=== PATIENT | male | born 1950 | race Caucasian/White ===

== ENCOUNTER 2017-03-11 12:12 | Emergency (ER) | payer MEDICARE, OTHER ==
--- NOTE | 2017-03-11 11:58 | CT ---
EXAMINATION TYPE: CT brain wo con DATE OF EXAM: 03/11/2017 COMPARISON: 08/07/2014 INDICATION: Fall, bruising, swelling to Rt eye DLP: 1574.6 (brain and facial) mGycm, Automated exposure control for dose reduction was used. CONTRAST: None CT of the brain is performed utilizing 3 mm thick sections through the posterior fossa and 3 mm thick sections through the remaining calvarium. Study is performed within 24 hours of arrival to the hosp ital. There is a subdural hematoma along the right parietal region with extension into the right middle scrap shear operator nial fossa with a maximum depth of 1.1 cm. This extends from near the frontal region to near the occi pital junction with the parietal lobe. Mild mass effect is adjacent on the brain dated sulci on the r ight are effaced. No midline shift is evident. Report was called to the referring PA Mine Dominguez by Brando Khan by telephone 1147 hours 03/11/2017. No mass lesion is evident. No acute infarcts are evident. Ventricles appear appropriate for the patient age. Quadrigeminal plate and ambient cistern are patent . Sulci on the left appear normal. Right sulci are less well visualized compared to the left which is a change from the comparison study of 2013. Retention cyst is within the sphenoid sinus. There is prominent soft tissue swelling over the right o rbital region. Septal deviation and spurring to the left is noted. IMPRESSIONS: 1. Right subdural hematoma with a maximum depth of 1.1 cm. There appears to be some mild effacement of right sulci without midline shift.
--- NOTE | 2017-03-11 12:00 | CT ---
EXAMINATION TYPE: CT facial bones wo con DATE OF EXAM: 03/11/2017 COMPARISON: NONE HISTORY: Fall, bruising and swelling to Rt eye CT DLP: 1574.6 (brain, facial) mGycm Automated exposure control for dose reduction was used. TECHNIQUE: CT scan of the sinuses is performed without contrast, axial images are obtained, coronal r eformatted images are also reviewed. FINDINGS: There is a 2.5 cm hematoma in the subcutaneous tissues adjacent to the superior lateral rig ht orbit near the tip of the greater wing of the sphenoid. No underlying fractures are evident. The globes are symmetrical. Soft tissue swelling is over the right orbit and right cheek. Retention c yst is within the sphenoid sinus. Remaining paranasal sinuses are clear. There is left septal deviati on and a left septal spur. The ostiomeatal units are patent. The patient's subdural hematoma is poorly visualized on this examination but is evident. Please see C T brain report same date. Results were notified to the referring PA at the time of the CT brain inter pretation. IMPRESSION: 1. Right subdural hematoma. Results were notified. 2. Subcutaneous hematoma measuring 2.5 cm adjacent to the greater wing of the sphenoid. 3. Soft tissue swelling right periorbital right cheek region.
[2017-03-11 12:14] VITALS: RESP 20
--- NOTE | 2017-03-11 12:49 | ED ---
General Adult HPI - General Chief complaint: Head Injury Stated complaint: Head Injury Time Seen by Provider: 03/11/17 12:24 Source: patient, family, RN notes reviewed Mode of arrival: wheelchair Limitations: no limitations - History of Present Illness Initial comments: Patient is a pleasant 66-year-old male presenting to the emergency department following head injury. Patient admits to drinking alcohol and did have a fall on Saturday night around midnight. Patient does recall the fall and denies loss of consciousness. Patient has a mild headache that is moderate to severe with upright position. No weakness. No confusion. No vomiting. Patient does have some nausea. Patient is ambulatory without difficulty. No history of previous head injury. Patient was seen at the clinic and had outpatient head CT done. - Related Data Home Medications Medication Instructions Recorded Confirmed ALPRAZolam [Xanax] 0.5 mg PO BID PRN 05/07/16 05/07/16 Atorvastatin [Lipitor] 40 mg PO DAILY 05/07/16 05/07/16 Metoprolol Succinate (ER) [Toprol 100 mg PO BID 05/07/16 05/07/16 XL] Omeprazole [PriLOSEC] 40 mg PO DAILY 05/07/16 05/07/16 Sertraline [Zoloft] 200 mg PO DAILY 05/07/16 05/07/16 Zolpidem Tartrate [Ambien Cr] 12.5 mg PO HS 05/07/16 05/07/16 amLODIPine BESYLATE/BENAZEPRIL 1 cap PO DAILY 05/07/16 05/08/16 [amLODIPine BESYLATE/BENAZEPRIL 10-20 mg] Previous Rx's Medication Instructions Recorded Levofloxacin [Levaquin] 500 mg PO DAILY #10 tab 05/09/16 Allergies Allergy/AdvReac Type Severity Reaction Status Date / Time No Known Allergies Allergy Verified 03/11/17 12:14 Review of Systems ROS Statement: Those systems with pertinent positive or pertinent negative responses have been documented in the HPI. ROS Other: All systems not noted in ROS Statement are negative. Constitutional: Denies: fever Eyes: Denies: vision change ENT: Denies: ear pain Respiratory: Denies: cough Cardiovascular: Denies: chest pain Endocrine: Denies: fatigue Gastrointestinal: Reports: nausea. Denies: abdominal pain, vomiting Genitourinary: Denies: urgency Musculoskeletal: Denies: back pain Skin: Denies: rash Neurological: Reports: headache. Denies: weakness, numbness, paresthesias, confusion, abnormal gait Past Medical History Past Medical History: GERD/Reflux, Hyperlipidemia, Hypertension, Osteoarthritis (OA), Pneumonia Additional Past Medical History / Comment(s): HIATAL HERNIA, TORN LT ROTATOR CUFF, HEAD INJURY/CONCUSSION 08-07-14 History of Any Multi-Drug Resistant Organisms: None Reported Past Surgical History: Orthopedic Surgery Additional Past Surgical History / Comment(s): RT FOOT SX. VASECTOMY Past Anesthesia/Blood Transfusion Reactions: No Reported Reaction Past Psychological History: Anxiety, Depression Additional Psychological History / Comment(s): PT ADMITS TO SOME DEPRESSION BUT DENIES ANY THOUGHT OF HARMING SELF,NO HOPELESSNESS. PT STATED WORKED NO LESS THAN 70 HOURS A WEEK, [employer] NEVER HAD A LOT OF TIME TO DEVELOP ANY HOBBIES ETC. HE LOST HIS 4 YEARS AGO AND RETIRED 6 MONTHS AGO. 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21 Past Drug Use History: None Reported - Past Family History Mother Family Medical History: Dialysis, Hypertension, Renal Disease Father Family Medical History: Cancer Additional Family Medical History / Comment(s): LUNG CANCER General Exam Limitations: no limitations General appearance: alert, in no apparent distress Head exam: Present: other (Right periorbital soft tissue swelling) Eye exam: Present: PERRL, EOMI, other (Right-sided some conjunctival hemorrhage) ENT exam: Present: normal oropharynx Neck exam: Present: tenderness (Mild tenderness to the C2-C3 region.) Respiratory exam: Present: normal lung sounds bilaterally Cardiovascular Exam: Present: regular rate, normal rhythm GI/Abdominal exam: Present: soft. Absent: tenderness Extremities exam: Present: normal inspection, full ROM. Absent: tenderness Neurological exam: Present: alert, oriented X3, CN II-XII intact. Absent: motor sensory deficit Expanded Patient oriented to: Present: person, place, time Speech: Present: fluid speech Cranial nerves: EOM's Intact: Normal, Facial Sensation: Normal Cerebellar function: Finger to Nose: Normal Sensory exam: Upper Extremity Light Touch: Normal, Lower Extremity Light Touch: Normal Motor strength exam: RUE: 5, LUE: 5, RLE: 5, LLE: 5 Eye Response: (4) open spontaneously Motor Response: (6) obeys commands Verbal Response: (5) oriented Psychiatric exam: Present: normal affect, normal mood Skin exam: Present: normal color Course Vital Signs 03/11/17 12:12 Temperature 98.9 F Pulse Rate 80 Respiratory 20 Rate Blood Pressure 146/84 O2 Sat by Pulse 96 Oximetry Medical Decision Making - Medical Decision Making Patient was updated on results and plan. Case was discussed with Dr. Mora at [facility], who will accept transfer. Disposition Clinical Impression: Subdural hematoma Disposition: OTHER INSTITUTION NOT DEFINED Referrals: Bacilio Dotson MD [Primary Care Provider] - 1-2 days Time of Disposition: 12:51 - Out of Hospital Transfer - Req. Specs Out of Hospital Transfer - Requested Specifics: Other Emergency Center
[2017-03-11] MEDS ORDERED: MORPHINE SULFATE 4 MG/ML SYRINGE IV STA (12:52)
[2017-03-11 13:04] LABS: Partial Thromboplastin Time 27.2 sec (22.0-30.0); Prothrombin Time 9.8 sec (9.0-12.0)
[2017-03-11 13:09] LABS: ALT 27 U/L (21-72); AST 42 U/L (17-59); Alkaline Phosphatase 95 U/L (38-126); Anion Gap 9 mmol/L; Blood Urea Nitrogen 18 mg/dL (9-20); Calcium 9.7 mg/dL (8.4-10.2); Carbon Dioxide 27 mmol/L (22-30); Chloride 101 mmol/L (98-107); Glucose 107 mg/dL (74-99); Non-African American GFR(MDRD) >60 (>60 ml/min/1.73 sqM); Potassium 4.5 mmol/L (3.5-5.1); Sodium 137 mmol/L (137-145); Total Bilirubin 1.2 mg/dL (0.2-1.3); Total Protein 7.1 g/dL (6.3-8.2)
--- NOTE | 2017-03-11 13:22 | CT ---
EXAMINATION TYPE: CT cervical spine wo con DATE OF EXAM: 03/11/2017 COMPARISON: NONE HISTORY: Patient denies neck pain at time of exam. Patient complains of headache post fall [address] DLP: 426.1 mGycm Automated exposure control for dose reduction was used. TECHNIQUE: CT scan of the cervical spine is obtained without contrast, axial images are obtained, sa gittal and coronal reformatted images are also reviewed. FINDINGS: The patient's right subdural hematoma is faintly visualized within the [id number] at the skull base. No acute fractures evident. Uncovertebral joint hypertrophy is present C4-C5 with moderate bilateral foraminal narrowing, C5-6 with moderate to more severe foraminal stenosis. C6-7 uncovertebral joint h ypertrophy has moderate to severe bilateral foraminal stenosis, greater on the left. There is disc space narrowing C4-5. There is loss of disc height C5-6 C6-7. Endplate spurring is present C4-5 and left paracentral region at C5-6 centrally at C6-7. These have m ild anterior thecal sac compression. IMPRESSION: 1. No acute osseous abnormality. 2. Degenerative changes causing moderate to severe foraminal narrowing discussed above
[2017-03-11 13:25] LABS: Anisocytosis Slight; Basophils % (A) 0 %; CH 31.7; CHCM 34.5; Eosinophils # (A) 0.1 k/uL (0-0.7); Eosinophils % (A) 1 %; HCT 37.3 % (39.0-53.0); HDW 3.17; HGB 12.5 gm/dL (13.0-17.5); Luc # (Auto) 0.24; Luc % (Auto) 4; Lymphocytes # (A) 0.6 k/uL (1.0-4.8); Lymphocytes % (A) 11 %; MCH 30.9 pg (25.0-35.0); MCHC 33.5 g/dL (31.0-37.0); Mean Platelet Volume 9.9; Monocytes # (A) 0.6 k/uL (0-1.0); Monocytes % (A) 10 %; Neutrophils # (A) 4.2 k/uL (1.3-7.7); Neutrophils % (A) 73 %; RBC 4.06 m/uL (4.30-5.90); RDW 17.4 % (11.5-15.5); WBC 5.8 k/uL (3.8-10.6); WBC (Perox) 5.93
[2017-03-11 13:42] VITALS: BP 138/78; PULSE 78; TEMP 98.9
== END 2017-03-11 13:42 | disposition short-term general hospital (02) ==
LOC: EC 12:12
DX: S06.5X0A Traumatic subdural hemorrhage without loss of consciousness, initial encounter (principal); H11.31 Conjunctival hemorrhage, right eye; E78.5 Hyperlipidemia, unspecified; I10 Essential (primary) hypertension; K21.9 Gastro-esophageal reflux disease without esophagitis; F32.9 Major depressive disorder, single episode, unspecified; F41.9 Anxiety disorder, unspecified; Z87.891 Personal history of nicotine dependence; Z79.899 Other long term (current) drug therapy; W01.190A Fall on same level from slipping, tripping and stumbling with subsequent striking against furniture, initial encounter; Y93.89 Activity, other specified
CPT/HCPCS: 36415; 80053; 85025; 85610; 85730; 72125; 70486; 70450; 99285; 96374; L0120; J2270

== ENCOUNTER 2021-07-30 09:52 | Emergency (ER) | payer MEDICARE, OTHER ==
[2021-07-30 09:57] VITALS: RESP 18
[2021-07-30] MEDS ORDERED: KETOROLAC 15 MG/ML 1 ML VIAL IM STA (10:07)
[2021-07-30] MEDS ORDERED: HYDROmorphone 0.5 MG/0.5 ML SYRINGE IM STA (10:08)
[2021-07-30] MEDS ORDERED: HYDROmorphone 1 MG/ML 1 ML SYRINGE IM STA (10:08)
--- NOTE | 2021-07-30 10:11 | ED ---
General Adult HPI - General Chief complaint: Extremity Injury, Upper Stated complaint: Fall/Rib Pain Time Seen by Provider: 07/30/21 09:59 Source: patient, RN notes reviewed, old records reviewed Mode of arrival: wheelchair Limitations: physical limitation - History of Present Illness Initial comments: 70-year-old male presents status post fall. Patient states yesterday evening he tripped on a slippery floor transition and fell onto his right chest wall. His had significant pain and feels a popping sensation. This is worse with any movement or deep breathing. He denies head or neck trauma. No anticoagulation. No other injury reported. - Related Data Home Medications Medication Instructions Recorded Confirmed ALPRAZolam [Xanax] 0.5 mg PO BID PRN 05/07/16 03/11/17 Atorvastatin [Lipitor] 40 mg PO HS 05/07/16 03/11/17 Metoprolol Succinate (ER) [Toprol 100 mg PO BID 05/07/16 03/11/17 XL] Omeprazole [PriLOSEC] 40 mg PO DAILY 05/07/16 03/11/17 Sertraline [Zoloft] 200 mg PO DAILY 05/07/16 03/11/17 amLODIPine BESYLATE/BENAZEPRIL 1 cap PO DAILY 05/07/16 03/11/17 [amLODIPine BESYLATE/BENAZEPRIL 10-20 MG] Aspirin 325 mg PO DAILY 03/11/17 03/11/17 Multivit-Min/FA/Lycopen/Lutein 1 tab PO DAILY 03/11/17 03/11/17 [Centrum Silver Men Tablet] Zolpidem [Ambien] 10 mg PO HS 03/11/17 03/11/17 Previous Rx's Medication Instructions Recorded HYDROcodone/APAP 5-325MG [[place] 1 tab PO Q6HR PRN #12 tab 07/30/21 5-325] Ibuprofen [Motrin] 600 mg PO Q8HR PRN #24 tab 07/30/21 Allergies Allergy/AdvReac Type Severity Reaction Status Date / Time morphine Allergy Rash/Hives Verified 07/30/21 09:57 Review of Systems ROS Statement: Those systems with pertinent positive or pertinent negative responses have been documented in the HPI. ROS Other: All systems not noted in ROS Statement are negative. Past Medical History Past Medical History: GERD/Reflux, Hyperlipidemia, Hypertension, Osteoarthritis (OA), Pneumonia Additional Past Medical History / Comment(s): HIATAL HERNIA, TORN LT ROTATOR CUFF, HEAD INJURY/CONCUSSION 08-07-14 History of Any Multi-Drug Resistant Organisms: None Reported Past Surgical History: Orthopedic Surgery Additional Past Surgical History / Comment(s): RT FOOT SX. VASECTOMY Past Anesthesia/Blood Transfusion Reactions: No Reported Reaction Past Psychological History: Anxiety, Depression Smoking Status: Never smoker Past Alcohol Use History: Occasional Past Drug Use History: None Reported - Past Family History Mother Family Medical History: Dialysis, Hypertension, Renal Disease Father Family Medical History: Cancer Additional Family Medical History / Comment(s): LUNG CANCER General Exam Limitations: physical limitation General appearance: alert, in no apparent distress Head exam: Present: atraumatic, normocephalic Eye exam: Present: normal appearance, PERRL ENT exam: Present: normal exam Neck exam: Present: normal inspection. Absent: tenderness, meningismus Respiratory exam: Present: normal lung sounds bilaterally, chest wall tenderness (Severe right lateral chest wall tenderness, no crepitus, no external signs of trauma). Absent: respiratory distress Cardiovascular Exam: Present: regular rate, normal rhythm GI/Abdominal exam: Present: soft. Absent: distended, tenderness Extremities exam: Present: normal inspection, normal capillary refill. Absent: pedal edema Neurological exam: Present: alert, oriented X3, CN II-XII intact. Absent: motor sensory deficit Skin exam: Present: warm, dry, intact. Absent: cyanosis, diaphoretic Course Vital Signs 07/30/21 09:53 Temperature 98.0 F Pulse Rate 71 Respiratory 18 Rate Blood Pressure 144/80 O2 Sat by Pulse 97 Oximetry Medical Decision Making - Medical Decision Making 70-year-old male status post fall with right lateral chest pain. X-ray performed, negative for pneumothorax, shows a fractured 6 and seventh rib minimally displaced. Patient's pain is controlled in emergency partner. Given incentive spirometer. He will follow with the primary care physician. Disposition Clinical Impression: Rib fractures Disposition: HOME SELF-CARE Condition: Good Instructions (If sedation given, give patient instructions): Rib Fracture (ED) Additional Instructions: Please use incentive spirometer once hourly throughout the day. Please return with worsening pain. Prescriptions: Ibuprofen [Motrin] 600 mg PO Q8HR PRN #24 tab PRN Reason: Pain HYDROcodone/APAP 5-325MG [[place] 5-325] 1 tab PO Q6HR PRN #12 tab PRN Reason: Pain Is patient prescribed a controlled substance at d/c from ED?: No Referrals: Bacilio Dotson MD [Primary Care Provider] - 1-2 days Time of Disposition: 11:17
--- NOTE | 2021-07-30 11:51 | XR ---
Right RIBS with chest x-ray HISTORY: Trauma and pain Frontal view of the chest, 4 views of the right ribs submitted and correlated to prior chest x-ray 05/07/2016 Chest x-ray is remarkable for some probable scarring at the lingula, postop change to the left should er. There is no evident pneumothorax or pleural effusion. Cardiac mediastinal silhouette is stable. T here is thoracic spondylosis, spinal curvature present. Mild cortical irregularity present lateral se venth and sixth ribs, seventh rib is minimally displaced. IMPRESSION: Right-sided rib fractures.
[2021-07-30 12:16] VITALS: BP 120/70; PULSE 70; TEMP 98.2
== END 2021-07-30 12:15 | disposition home or self-care (01) ==
LOC: EC 09:52
DX: S22.41XA Multiple fractures of ribs, right side, initial encounter for closed fracture (principal); I10 Essential (primary) hypertension; E78.5 Hyperlipidemia, unspecified; K21.9 Gastro-esophageal reflux disease without esophagitis; F32.9 Major depressive disorder, single episode, unspecified; F41.9 Anxiety disorder, unspecified; Z79.1 Long term (current) use of non-steroidal anti-inflammatories (NSAID); Z79.82 Long term (current) use of aspirin; Z79.899 Other long term (current) drug therapy; Z80.1 Family history of malignant neoplasm of trachea, bronchus and lung; Z82.49 Family history of ischemic heart disease and other diseases of the circulatory system; W01.0XXA Fall on same level from slipping, tripping and stumbling without subsequent striking against object, initial encounter
CPT/HCPCS: 71101; 99284; 96372 ×2; J1885; J1170

== ENCOUNTER 2023-02-11 13:59 | Observation (INO) | payer MEDICARE ==
[2023-02-11] MEDS ORDERED: oxyCODONE-APAP 10-325MG 1 EACH TAB PO STA (14:44)
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
[2023-02-11 15:17] LABS: Anisocytosis Moderate; HCT 32.5 % (39.0-53.0); HGB 10.7 gm/dL (13.0-17.5); Macrocytosis Marked; Mean Platelet Volume 7.9; Platelet Count 115 k/uL (150-450); Poikilocytosis Slight; RBC 3.16 m/uL (4.30-5.90); RDW 22.1 % (11.5-15.5); WBC 3.2 k/uL (3.8-10.6)
[2023-02-11 15:36] LABS: ALT 32 U/L (4-49); AST 43 U/L (17-59); African American GFR (CKD) >90 (>60 ml/min/1.73 sqM); Albumin 3.9 g/dL (3.5-5.0); Alkaline Phosphatase 66 U/L (38-126); Anion Gap 8 mmol/L; Blood Urea Nitrogen 12 mg/dL (9-20); Calcium 9.1 mg/dL (8.4-10.2); Carbon Dioxide 27 mmol/L (22-30); Chloride 92 mmol/L (98-107); Glucose 99 mg/dL (74-99); Magnesium 1.3 mg/dL (1.6-2.3); Non-African American GFR(CKD) >90 (>60 ml/min/1.73 sqM); Potassium 4.6 mmol/L (3.5-5.1); Sodium 127 mmol/L (137-145); Total Bilirubin 0.9 mg/dL (0.2-1.3); Total Protein 6.3 g/dL (6.3-8.2)
[2023-02-11] MEDS ORDERED: SODIUM CHLORIDE 0.9% 1,000 ML IV STA (15:44)
--- NOTE | 2023-02-11 15:51 | CT ---
EXAMINATION TYPE: CT lumbar spine wo con DATE OF EXAM: 02/11/2023 COMPARISON: None HISTORY: 72-year-old male Low back pain since fall 5 days ago TECHNIQUE: Contiguous axial scanning of the lumbar spine without IV contrast. Coronal and sagittal re constructions performed. CT DLP: 1675.6 mGycm Automated exposure control for dose reduction was used. FINDINGS: There is a T12 vertebral body fracture which affects both the superior and inferior endplates. This r esults in minimal anterior wedging with 50% anterior height loss. No retropulsion into the spinal can al. Moderate to advanced degenerative disc disease mid and lower lumbar spine. Bulging discs contribute t o variable mild spinal canal stenoses at multiple levels, more moderate at L4-L5 and L5-S1. Multilevel advanced hypertrophic facet arthropathy especially mid to lower lumbar spine. Alignment is maintained. On the left, changes result in severe neuroforaminal stenosis at L4-L5 and moderate at L5-S1. Mild L3 -L4. On the right, changes result in severe neuroforaminal stenosis at L5-S1 and moderate at L4-L5. Mild a t L3-L4. Underlying hiatal hernia partially visualized. IMPRESSION: 1. MULTIDIRECTIONAL ACUTE FRACTURE OF THE T12 VERTEBRAL BODY. THIS RESULTS IN OVERALL MINIMAL ANTERIO R WEDGING WITH 15% ANTERIOR HEIGHT LOSS. NO RETROPULSION INTO THE VENTRAL SPINAL CANAL. 2. MODERATE TO ADVANCED SPONDYLOTIC CHANGE WITHIN THE MID AND LOWER LUMBAR SPINE. 3. SEVERE LEFT NEUROFORAMINAL STENOSIS AT L4-L5 AND ON THE RIGHT AT L5-S1. ADDITIONAL LEVEL BY LEVEL CHANGES ABOVE.
[2023-02-11] MEDS ORDERED: NALOXONE 0.4 MG/ML 1 ML VIAL IV PRN (15:57)
[2023-02-11] MEDS ORDERED: ONDANSETRON 4 MG/2 ML VIAL IVP PRN (15:57)
--- NOTE | 2023-02-11 16:04 | XR ---
EXAMINATION TYPE: XR chest 2V DATE OF EXAM: 02/11/2023 COMPARISON: 07/30/2021 INDICATION: Wheezing TECHNIQUE: Frontal and lateral views of the chest are obtained. FINDINGS: The heart size is normal. The pulmonary vasculature is normal. The lungs are clear. There is hyperinflation, increased AP diameter, and flattening the diaphragms. C orrelate for COPD. No pneumothorax is evident. In the region of the sixth or seventh right lateral rib there is some deformity, correlate for fractu re. Left shoulder prosthesis is present. IMPRESSION: 1. Rib fracture in the region of the sixth or seventh right lateral rib may be present. 2. No acute pulmonary process. 3. COPD
[2023-02-11] MEDS: SODIUM CHLORIDE 0.9% 1,000 ML IV SCH (16:34)
[2023-02-11] MEDS: HYDROmorphone 0.5 MG/0.5 ML SYRINGE IVP PRN ×2 (16:38→20:40)
[2023-02-11] MEDS: MAGNESIUM SULFATE-D5W PMX 1 GM in DEXTROSE/WATER 1 100ML.BAG IVPB SCH ×2 (16:38→18:25)
[2023-02-11] MEDS ORDERED: ZOLPIDEM 5 MG TAB ONE (21:48)
[2023-02-11] MEDS ORDERED: ALPRAZolam 0.5 MG TAB ONE (21:48)
[2023-02-11] MEDS: lisinopriL 20 MG TAB PO SCH (21:49)
[2023-02-11] MEDS: amLODIPine 10 MG TAB PO SCH (21:49)
[2023-02-11] MEDS: PANTOPRAZOLE 40 MG TABLET PO SCH (21:49)
[2023-02-11] MEDS: ALPRAZolam 0.5 MG TAB PO SCH (21:51)
[2023-02-11] MEDS: METOPROLOL SUCCINATE (ER) 100 MG TAB.ER.24H PO SCH (21:51)
[2023-02-11] MEDS: ZOLPIDEM 5 MG TAB PO SCH (21:51)
[2023-02-11] MEDS: SERTRALINE 100 MG TAB PO SCH (21:51)
[2023-02-11] MEDS: HYDROcodone/APAP 5-325MG 1 EACH TAB PO PRN (21:51)
[2023-02-12] MEDS: HYDROcodone/APAP 5-325MG 1 EACH TAB PO PRN ×4 (04:13→20:55)
[2023-02-12] MEDS: HYDROmorphone 0.5 MG/0.5 ML SYRINGE IVP PRN ×2 (04:13→19:55)
[2023-02-12] MEDS: ALBUTEROL NEBULIZED 2.5 MG/3 ML INHALATION PRN ×3 (07:26→20:22)
[2023-02-12] MEDS ORDERED: Magnesium Replacement Protocol 1 EACH MISC MISCELLANE PRN (08:22)
[2023-02-12] MEDS: lisinopriL 20 MG TAB PO SCH (08:33)
[2023-02-12] MEDS: SERTRALINE 100 MG TAB PO SCH ×2 (08:33→22:21)
[2023-02-12] MEDS: ALPRAZolam 0.5 MG TAB PO SCH ×2 (08:33→22:20)
[2023-02-12] MEDS: METOPROLOL SUCCINATE (ER) 100 MG TAB.ER.24H PO SCH ×2 (08:33→22:21)
[2023-02-12] MEDS: PANTOPRAZOLE 40 MG TABLET PO SCH (08:33)
[2023-02-12] MEDS: amLODIPine 10 MG TAB PO SCH (08:33)
[2023-02-12] MEDS: SODIUM CHLORIDE 0.9% 1,000 ML IV SCH ×2 (08:37→17:54)
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
[2023-02-12] MEDS ORDERED: MAGNESIUM HYDROXIDE 2,400 MG/10 ML CUP PO PRN (09:09)
[2023-02-12] MEDS ORDERED: SENNOSIDES-DOCUSATE SODIUM 1 EACH TAB PO PRN (09:09)
[2023-02-12] MEDS: BACLOFEN 10 MG TAB PO PRN ×2 (09:22→22:20)
--- NOTE | 2023-02-12 09:30 | P.CNOR ---
History of Present Illness - [facility] Consult date: 02/12/23 Requesting physician: Ritesh Tidwell Consult reason: fracture (T12 compression fracture; Status post fall), low back pain, back pain History of present illness: Patient is a very pleasant 72-year-old male who is seen and examined at bedside for further evaluation of his thoracolumbar spine. Patient states over the past 2 weeks he has been being treated for pneumonia. He has not had significant improvement of his symptoms. He states he was using an inhaler for his breath ing when he became dizzy and fell on the wood floor at his house last week. Since that time, he has had significant pain and spasm over his right mid to upper lumbar spine. His pain is significantly exacerbated with coughing, sneezing, and increased activities. Due to his lack of improvement in regards to his wheezing and his back pain, he presented to the emergency department for further evaluation. CT imaging was performed which showed evidence of a T12 compression fracture deformity. Lab testing also showed evidence of hyponatremia, hypomagnesemia, and other low findings including WBC, RBC, and platelets. He has been admitted to medicine for further treatment and evaluation. He is currently receiving Dilaudid for pain control. They are repeating labs and imaging. He denies any lower extremity weakness or radiculopathy bilaterally. He has been voiding independently. He does admit to history of opioid-induced constipation. He states he has not had a bowel movement over the past couple days prior to his admission to the hospital. He has not had a bowel movement since his admission. He denies abdominal pain but states he is not currently passing gas. He has had some difficulty with ambulation chronically following total knee arthroplasty on the right performed twice. Past Medical History Past Medical History: GERD/Reflux, Hyperlipidemia, Hypertension, Osteoarthritis (OA), Pneumonia Additional Past Medical History / Comment(s): HIATAL HERNIA, TORN LT ROTATOR CUFF, HEAD INJURY/CONCUSSION 2013 History of Any Multi-Drug Resistant Organisms: None Reported Past Surgical History: Orthopedic Surgery Additional Past Surgical History / Comment(s): RT FOOT SX. VASECTOMY Past Anesthesia/Blood Transfusion Reactions: No Reported Reaction Past Psychological History: Anxiety, Depression Additional Psychological History / Comment(s): Pt lost his 10 years ago. 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 AND QUIT AT AGE 21 Past Drug Use History: None Reported - Past Family History Mother Family Medical History: Dialysis, Hypertension, Renal Disease Father Family Medical History: Cancer Additional Family Medical History / Comment(s): LUNG CANCER Medications and Allergies Home Medications Medication Instructions Recorded Confirmed Type ALPRAZolam [Xanax] 0.5 mg PO BID 05/07/16 02/11/23 History Atorvastatin [Lipitor] 40 mg PO HS 05/07/16 02/11/23 History Metoprolol Succinate (ER) [Toprol 100 mg PO BID 05/07/16 02/11/23 History XL] Omeprazole [PriLOSEC] 40 mg PO DAILY 05/07/16 02/11/23 History Sertraline [Zoloft] 100 mg PO BID 05/07/16 02/11/23 History amLODIPine BESYLATE/BENAZEPRIL 1 cap PO DAILY 05/07/16 02/11/23 History [amLODIPine BESYLATE/BENAZEPRIL 10-20 MG] Zolpidem [Ambien] 10 mg PO HS 03/11/17 02/11/23 History Albuterol Sulfate [Albuterol 2 puff PO RT-Q6H PRN 02/11/23 02/11/23 History Sulfate Hfa] Tamsulosin [Flomax] 0.4 mg PO HS 02/11/23 02/11/23 History Baclofen 10 mg PO TID PRN #90 tab 02/12/23 Rx Sennosides-Docusate Sodium 1 tab PO BID PRN #60 tablet 02/12/23 Rx [Senokot-S] Hydrocodone/Acetaminophen 1 tab PO Q6H 30 Days #120 tab 02/13/23 Rx [Hydrocodone/Acetaminophen 7.5-325] Allergies Allergy/AdvReac Type Severity Reaction Status Date / Time morphine Allergy Rash/Hives Verified 02/11/23 16:35 Physical Examination Osteopathic Statement: *. No significant issues noted on an osteopathic structural exam other than those noted in the History and Physical/Consult. Physical exam: Patient is awake, alert, and oriented 3 Vital signs stable; patient currently sitting in a bedside chair Good chest excursion with deep inspiration and expiration Abdomen is somewhat firm but nontender Examination of thoracic and lumbar spine reveals skin is intact with no a brasions, lacerations, or bruises; no erythema, purulence or signs of infection Pain with palpation over the right paraspinal muscles near the thoracolumbar junction and mid lumbar spine Patient is slow with movements of his thoracolumbar spine Dorsiflexion, plantarflexion, and extensor hallucis longus positive sustained bilaterally Lower extremity strength 5/5 bilaterally Straight leg test negative bilateral lower extremities No signs or symptoms of DVT; no calf pain No pain with internal and external rotation of the hips bilaterally Neurovascularly intact Results Pertinent studies: CT of the lumbar spine taken on 02/11/2023: T12 wedging compression fracture deformity through the vertebral body with inferior endplate height loss; degenerative disc disease throughout the lumbar spine; L4-5 vacuum disc phenomenon; L5-S1 severe degenerative disc disease with anterior and posterior spurring; degenerative scoliosis; multilevel lateral spurring; L3-4 mild bilateral foraminal stenosis; L4-5 severe bilateral foraminal stenosis; L5-S1 and moderate bilateral foraminal stenosis - Labs Labs: Abnormal Lab Results - Last 24 Hours (Table) 02/11/23 02/11/23 Range/Units 14:58 14:58 WBC 3.2 L (3.8-10.6) k/uL RBC 3.16 L (4.30-5.90) m/uL Hgb 10.7 L (13.0-17.5) gm/dL Hct 32.5 L (39.0-53.0) % MCV 103.0 H (80.0-100.0) fL RDW 22.1 H (11.5-15.5) % Plt Count 115 L (150-450) k/uL Macrocytosis Marked A Sodium 127 L (137-145) mmol/L Chloride 92 L (98-107) mmol/L Magnesium 1.3 L (1.6-2.3) mg/dL H & H 02/11/23 Range/Units 14:58 Hgb 10.7 L (13.0-17.5) gm/dL Hct 32.5 L (39.0-53.0) % Result Diagrams: 02/13/23 06:51 02/13/23 06:51 Assessment and Plan Assessment: Assessment: Acute traumatic T12 compression fracture deformity Right lumbar paraspinal muscle spasm Right-sided lower thoracic and upper to mid lumbar pain Status post fall Recent pneumonia diagnosis Hyperlipidemia Hypertension Hyponatremia Hypomagnesemia Leukopenia Thrombocytopenia History of narcotic-induced constipation Lumbar degenerative scoliosis Multilevel lumbar foraminal stenosis Lumbar osteophytic spurring Lumbar degenerative disc disease Lumbosacral degenerative disc disease History right total knee arthroplasty 2 (1) Status post fall Status: Acute Code(s): Z91.81 - HISTORY OF FALLING SNOMED Code(s): 218142027 (2) Lumbar degenerative disc disease Status: Acute Code(s): M51.36 - OTHER INTERVERTEBRAL DISC DEGENERATION, LUMBAR REGION SNOMED Code(s): 76926238 (3) DDD (degenerative disc disease), lumbosacral Status: Acute Code(s): M51.37 - OTHER INTERVERTEBRAL DISC DEGENERATION, LUMBOSACRAL REGION SNOMED Code(s): 15312353 (4) Foraminal stenosis of lumbar region Status: Acute Code(s): M48.061 - SPINAL STENOSIS, LUMBAR REGION WITHOUT NEUROGENIC TIFFANI SNOMED Code(s): 307752683 (5) Pneumonia Status: Acute Code(s): J18.9 - PNEUMONIA, UNSPECIFIED ORGANISM SNOMED Code(s): 347835893 (6) Osteophyte Status: Acute Code(s): M25.70 - OSTEOPHYTE, UNSPECIFIED JOINT SNOMED Code(s): 294586526804775 (7) Degenerative scoliosis Status: Acute Code(s): M41.50 - OTHER SECONDARY SCOLIOSIS, SITE UNSPECIFIED SNOMED Code(s): 976367220 (8) Constipation Status: Acute Code(s): K59.00 - CONSTIPATION, UNSPECIFIED SNOMED Code(s): 40744211 (9) Compression fracture of T12 vertebra Status: Acute Code(s): S22.080A - WEDGE COMPRESSION FRACTURE OF T11-T12 VERTEBRA, INIT SNOMED Code(s): 970243051 (10) Hyperlipidemia Status: Acute Code(s): E78.5 - HYPERLIPIDEMIA, UNSPECIFIED SNOMED Code(s): 62706146 (11) Hypertension Status: Acute Code(s): I10 - ESSENTIAL (PRIMARY) HYPERTENSION SNOMED Code(s): 95177095 (12) Hypomagnesemia Status: Acute Code(s): E83.42 - HYPOMAGNESEMIA SNOMED Code(s): 589265914 (13) Hyponatremia Status: Acute Code(s): E87.1 - HYPO-OSMOLALITY AND HYPONATREMIA SNOMED Code(s): 49052763 Plan: Plan: 1. After reviewing of imaging, physical examination the patient, and further discussion with the patient, will currently planned to continue with conservative treatment at this time. Patient did sustain a fall at home after becoming dizzy while using an inhaler 1 week ago. He has had significant pain on the right side near the thoracolumbar junction and over the right paraspinal muscles of the lumbar spine. His pain is exacerbated with coughing and sneezing and other increased activities. Review of imaging to show evidence of a T12 compression fracture. At this time we'll plan for bracing. A prescription has been written and provided to case management for a [place] TLSO brace. Once this brace is delivered and fitted appropriately, patient should wear this brace while sitting upright at greater than 45, during increase activities, during ambulation. Brace is not have to or while lying in bed or while bathing. Following fitting of this brace, patient is clear for discharge from an orthopedic spine standpoint. Following discharge, patient may follow-up with Dieter Ruiz PA-C or Dr. Aden Stafford at [facility]. 2. Patient is given a prescription for baclofen 10 mg 1 tab 3 times a day, as needed for muscle spasm. Prescription is also sent to the [facility] pharmacy located within the [facility] per request of the patient. 3. Patient does have a history of opioid-induced constipation. He is not currently passing gas and has not had a bowel movement for multiple days. We have added milk of magnesia and Senokot-S which he may take as prescribed to help facilitate a bowel movement. We will plan for prescription for Senokot-S at the time of discharge. 4. Patient will continue to be seen and examined by medicine for his multiple other medical diagnoses. Patient is currently undergoing further repeat lab testing. I reviewed the imaging in the case. There is compression fracture at T12 of uncertain chronicity. The patient has a number of medical issues that his being actively worked up and evaluated and treated appropriately. I think using a brace is worthwhile for the patient however he may require further imaging and further intervention as treatment develops. He could be a candidate for biopsy with kyphoplasty at that level if he is not tolerating bracing. Time with Patient: Greater than 30 (Including obtaining history, physical examination, reviewing of imaging, and dictation.)
[2023-02-12 14:48] LABS: Albumin 4.4 g/dL (3.8-4.9); Albumin/Globulin Ratio 2.38 (1.60-3.17); Anion Gap 12.6 mmol/L (10.00-18.00); BUN/Creat Ratio 12.06 Ratio (12.00-20.00); Blood Urea Nitrogen 11.7 mg/dL (9.0-27.0); Calcium 9.4 mg/dL (8.7-10.3); Carbon Dioxide 25.9 mmol/L (20.0-27.5); Globulin 1.9 g/dL (1.6-3.3); Non-African American GFR(CKD) 77.7 (60.0-200.0); Potassium 5.1 mmol/L (3.5-5.5); Total Bilirubin 0.6 mg/dL (0.30-1.20); Total Protein 6.3 g/dL (6.2-8.2)
[2023-02-12] MEDS ORDERED: ATORVASTATIN 40 MG TAB PO SCH (21:00)
[2023-02-12] MEDS ORDERED: TAMSULOSIN 0.4 MG CAP.ER.24H PO SCH (21:00)
[2023-02-12] MEDS: ZOLPIDEM 5 MG TAB PO SCH (22:20)
[2023-02-13] MEDS: HYDROmorphone 1 MG/ML 1 ML SYRINGE IVP PRN ×2 (01:21→06:55)
[2023-02-13] MEDS: HYDROcodone/APAP 5-325MG 1 EACH TAB PO PRN ×2 (02:39→08:30)
[2023-02-13 03:23] VITALS: TEMP 97.7
[2023-02-13] MEDS: SODIUM CHLORIDE 0.9% 1,000 ML IV SCH (04:22)
[2023-02-13 08:12] VITALS: BP 121/77; PULSE 65; RESP 17
[2023-02-13] MEDS: amLODIPine 10 MG TAB PO SCH (08:29)
[2023-02-13] MEDS: PANTOPRAZOLE 40 MG TABLET PO SCH (08:29)
[2023-02-13] MEDS: BACLOFEN 10 MG TAB PO PRN (08:29)
[2023-02-13] MEDS: METOPROLOL SUCCINATE (ER) 100 MG TAB.ER.24H PO SCH (08:29)
[2023-02-13] MEDS: lisinopriL 20 MG TAB PO SCH (08:29)
[2023-02-13] MEDS: ALPRAZolam 0.5 MG TAB PO SCH (08:29)
[2023-02-13] MEDS: SERTRALINE 100 MG TAB PO SCH (08:29)
--- NOTE | 2023-02-13 08:39 | P.DS ---
Providers Date of admission: 02/11/23 15:59 Attending physician: Bacilio Dotson Consults: 02/11/23 15:57 Consult Physician Routine Consulting Provider: Kike Stafford Consult Reason/Comments: t12 compression fracture Do you want consulting provider notified?: Yes Primary care physician: Bacilio Dotson Hospital Course: This is a discharge summary and a 72-year-old white male essentially admitted for hyponatremia but history of fall area the patient ended up having T12 compression fracture after the fall about 5 days ago. Unfortunately, I suspect he does struggle with alcoholism as he admits to 3-4 days a week drinking a sixpack. I told him not to mix this with his opiate medication as yard he takes a sleeping aid and Xanax. The patient understands we will follow closely. He is discharged after orthopedic evaluation. Possible bone cement injection has been discussed with the patient try to treat this is fracture. The patient is discharged in stable condition to follow-up with me in 3-5 days. Patient Condition at Discharge: Fair Plan - Discharge Summary Discharge Rx Participant: No New Discharge Prescriptions: New Baclofen 10 mg PO TID PRN #90 tab PRN Reason: Spasms Sennosides-Docusate Sodium [Senokot-S] 1 tab PO BID PRN #60 tablet PRN Reason: Constipation Hydrocodone/Acetaminophen [Hydrocodone/Acetaminophen 7.5-325] 1 tab PO Q6H 30 Days #120 tab Continue ALPRAZolam [Xanax] 0.5 mg PO BID Sertraline [Zoloft] 100 mg PO BID Metoprolol Succinate (ER) [Toprol XL] 100 mg PO BID amLODIPine BESYLATE/BENAZEPRIL [amLODIPine BESYLATE/BENAZEPRIL 10-20 MG] 1 cap PO DAILY Atorvastatin [Lipitor] 40 mg PO HS Omeprazole [PriLOSEC] 40 mg PO DAILY Zolpidem [Ambien] 10 mg PO HS Tamsulosin [Flomax] 0.4 mg PO HS Albuterol Sulfate [Albuterol Sulfate Hfa] 2 puff PO RT-Q6H PRN PRN Reason: Shortness Of Breath Discharge Medication List ALPRAZolam [Xanax] 0.5 mg PO BID 05/07/16 [History] Atorvastatin [Lipitor] 40 mg PO HS 05/07/16 [History] Metoprolol Succinate (ER) [Toprol XL] 100 mg PO BID 05/07/16 [History] Omeprazole [PriLOSEC] 40 mg PO DAILY 05/07/16 [History] Sertraline [Zoloft] 100 mg PO BID 05/07/16 [History] amLODIPine BESYLATE/BENAZEPRIL [amLODIPine BESYLATE/BENAZEPRIL 10-20 MG] 1 cap PO DAILY 05/07/16 [History] Zolpidem [Ambien] 10 mg PO HS 03/11/17 [History] Albuterol Sulfate [Albuterol Sulfate Hfa] 2 puff PO RT-Q6H PRN 02/11/23 [History] Tamsulosin [Flomax] 0.4 mg PO HS 02/11/23 [History] Baclofen 10 mg PO TID PRN #90 tab 02/12/23 [Rx] Sennosides-Docusate Sodium [Senokot-S] 1 tab PO BID PRN #60 tablet 02/12/23 [Rx] Hydrocodone/Acetaminophen [Hydrocodone/Acetaminophen 7.5-325] 1 tab PO Q6H 30 Days #120 tab 02/13/23 [Rx] Follow up Appointment(s)/Referral(s): Bacilio Dotson MD [Primary Care Provider] - 1-2 days Dieter Ruiz PAC [PHYSICIAN OFFICE AUDITOR] - 2 Weeks (Patient may follow-up with Dieter Ruiz PA-C or Dr. Aden Stafford at [facility] in 2-3 weeks following discharge. ) Ra Sewell [NON-STAFF] - 1 Week Activity/Diet/Wound Care/Special Instructions: 1. Patient may wear TLSO brace for comfort and support while sitting upright at greater than 45, while working with therapy, and while ambulating; patient does not have to wear the brace while lying in bed or bathing 2. Patient should avoid excessive bending, twisting, and lifting; no lifting greater than 10 pounds Discharge/Stand Alone Forms: AA Meetings [facility], Who Do I Call?, Community Resources Discharge Disposition: HOME SELF-CARE
[2023-02-13 09:46] LABS: Magnesium 1.9 mg/dL (1.5-2.4)
[2023-02-13 11:34] LABS: African American GFR (CKD) 98.5 (60.0-200.0); Albumin 4.6 g/dL (3.8-4.9); Albumin/Globulin Ratio 2.3 (1.60-3.17); Anion Gap 10.2 mmol/L (10.00-18.00); BUN/Creat Ratio 11.33 Ratio (12.00-20.00); Blood Urea Nitrogen 10.2 mg/dL (9.0-27.0); Calcium 9.6 mg/dL (8.7-10.3); Carbon Dioxide 27.8 mmol/L (20.0-27.5); Magnesium 1.7 mg/dL (1.5-2.4); Potassium 5.2 mmol/L (3.5-5.5); Total Bilirubin 0.6 mg/dL (0.30-1.20); Total Protein 6.6 g/dL (6.2-8.2)
[2023-02-13 12:19] LABS: HCT 32.9 % (39.6-50.0); HGB 10.7 g/dL (13.0-17.0); MCH 34.9 pg (27.0-32.0); MCHC 32.5 g/dL (32.0-37.0); MCV 107.2 fL (80.0-97.0); NRBC Per 100 WBC 0 /100 WBCS (0.0-0.0); Platelet Count 170 X 10*3/uL (140-440); RBC 3.07 X 10*6/uL (4.40-5.60); RDW 22.8 % (11.5-14.5); WBC 3.97 X 10*3/uL (4.50-10.00)
== END 2023-02-13 12:28 | disposition home or self-care (01) ==
LOC: EC 13:59 → 5NMEDONC 15:59
PROVIDERS: ADMIT Family Medicine; ATTEND Family Medicine
DX: S22.080A Wedge compression fracture of T11-T12 vertebra, initial encounter for closed fracture (principal); E87.1 Hypo-osmolality and hyponatremia; E83.42 Hypomagnesemia; K59.03 Drug induced constipation; T40.2X5A Adverse effect of other opioids, initial encounter; K21.9 Gastro-esophageal reflux disease without esophagitis; E78.5 Hyperlipidemia, unspecified; I10 Essential (primary) hypertension; J44.9 Chronic obstructive pulmonary disease, unspecified; D72.819 Decreased white blood cell count, unspecified; D69.6 Thrombocytopenia, unspecified; M41.56 Other secondary scoliosis, lumbar region; M48.07 Spinal stenosis, lumbosacral region; M51.37 Other intervertebral disc degeneration, lumbosacral region; K44.9 Diaphragmatic hernia without obstruction or gangrene; F41.9 Anxiety disorder, unspecified; F32.A Depression, unspecified; F10.20 Alcohol dependence, uncomplicated; Z79.82 Long term (current) use of aspirin; Z79.899 Other long term (current) drug therapy; Z88.5 Allergy status to narcotic agent; Z20.822 Contact with and (suspected) exposure to COVID-19; Z82.49 Family history of ischemic heart disease and other diseases of the circulatory system; Z80.1 Family history of malignant neoplasm of trachea, bronchus and lung; Z87.01 Personal history of pneumonia (recurrent); Z96.651 Presence of right artificial knee joint; Z91.81 History of falling; Z84.1 Family history of disorders of kidney and ureter; Z98.52 Vasectomy status; W18.30XA Fall on same level, unspecified, initial encounter; Y92.009 Unspecified place in unspecified non-institutional (private) residence as the place of occurrence of the external cause
CPT/HCPCS: 36415; 71046; 72131; 80053; 83605; 83735; 83930; 83935; 84300; 85025; 85027; 87636; 94640; 96365; 96366; 96375; 96376; 99285

== ENCOUNTER → 2023-04-10 | Day surgery (SDC) | payer MEDICARE ==
[2023-04-05 10:09] VITALS: BMI 32.5
[~2023-04-10] MED LIST: ALBUTEROL NEBULIZED 2.5 MG/3 ML INHALATION PRN; ALPRAZolam 0.5 MG TAB PO SCH; BENZOCAINE/MENTHOL LOZENG 1 EACH LOZENGE MUCOUS MEM PRN; BUPIVACAINE (PF) 0.5% 30 ML VIAL SQ ONE; CYCLOBENZAPRINE 5 MG TAB PO PRN; DEXAMETHASONE SOD PHOSPHATE 4 MG/ML 1 ML VIAL IV ONE; HYDROcodone/APAP 5-325MG 1 EACH TAB PO PRN; HYDROmorphone 0.5 MG/0.5 ML SYRINGE IVP PRN; IBUPROFEN 200 MG TAB PO PRN; IOPAMIDOL M200 10 ML VIAL MISCELLANE ONE; KETOROLAC 15 MG/ML 1 ML VIAL IVP PRN; LACTATED RINGERS 1,000 ML IV ONE; LACTATED RINGERS 1,000 ML IV SCH; LIDOCAINE 1% (10MG/ML) FOR IV START INTRADERMA PRN; LIDOCAINE 2% INJ 20 MG/ML (2 ML VIAL) ONE; METOPROLOL SUCCINATE (ER) 100 MG TAB.ER.24H PO SCH; MIDAZOLAM 2 MG/2 ML VIAL IV PRN; MIDAZOLAM 2 MG/2 ML VIAL ONE; NON FORMULARY DRUG (Amlodipine Besylate/Benazepril [Amlodipine Besylate/Benazepril 10-20 M PO SCH; NON FORMULARY DRUG (Omeprazole 40 MG Capsule.Dr) PO SCH; NON FORMULARY DRUG (Zolpidem 10 MG Tab) PO SCH; ONDANSETRON 4 MG/2 ML VIAL IVP ONE; PHENYLEPHRINE-0.9% NACL SYG 1,000 MCG/10 ML SYRINGE ONE; PROPOFOL 10 MG/ML 20 ML VIAL IV ONE; SENNOSIDES-DOCUSATE SODIUM 1 EACH TAB PO SCH; SERTRALINE 100 MG TAB PO SCH; SODIUM CHLORIDE 0.9% 1,000 ML IV SCH; SUCCINYLCHOLINE CHLORIDE 200 MG/10 ML VIAL IV ONE; TAMSULOSIN 0.4 MG CAP.ER.24H PO SCH; WATER FOR INJECTION, STERILE 10 ML VIAL IV ONE; ePHEDrine 50 MG/ML 1 ML VIAL ONE; fentaNYL (PF) 50 MCG/ML 2 ML AMP ONE
[2023-04-10 08:38] VITALS: TEMP 97.8
--- NOTE | 2023-04-10 08:40 | P.OP ---
Date of Procedure: 04/10/23 Preoperative Diagnosis: T12 vertebral compression fracture, traumatic and subacute Postoperative Diagnosis: Same Anesthesia: GETA Pathology: other (T12 vertebral body biopsy sent to pathology) Condition: stable Disposition: PACU Description of Procedure: BRIEF OPERATIVE NOTE Preoperative Diagnosis: T12 vertebral body compression fracture, traumatic and subacute, thoracolumbar back pain, failed conservative treatment Postoperative Diagnosis: Same Procedure: Kyphoplasty of T12 Vertebral body biopsy of T12 Use of biplanar fluoroscopic guidance Surgeon: Dr. Stafford Grain Trader: Dieter Aceves is present throughout the entire the case persistence during positioning, dissection, exposure, visualization, and all crucial elements of the case as well as closure. Anesthesia: General anesthesia Estimated blood loss: Less than 10 mL Specimen: Vertebral body biopsy of T12 sent to pathology in formalin Complications: None apparent Components implanted: Bone cement approximately 9 mL Disposition: To recovery room in good stable condition. OPERATIVE INDICATIONS The patient has been having issues in their back ever since sustaining an injury. He is normally a community ambulator without assistance but was having significant ability due to his thoracolumbar back pain. His found have a new vertebral compression fracture at T12 which correlated well with his back pain. The patient has been through conservative treatment. They attempted conservative care with bracing however they're not having any benefit despite brace use. They continue to have significant pain and debility due to their fracture. We discussed various treatment options including surgery, and the patient wishes to proceed with surgery We discussed the risk, patient's alternatives and benefits of surgery including but not limited to, risk of bleeding risk of infection, risk of need for further surgery, risk of decreased, loss of motion, loss of function, cement extravasation, nerve damage, paralysis, heart attack, blindness and . OPERATIVE SUMMARY After discussing all the risks, patient alternatives and benefits at length, the patient elected to proceed with surgical intervention, signed informed consent, and presented for their procedure. The patient was seen and examined in the preoperative holding area and the surgical site was marked. The patient was given antibiotics and brought to the operating room. The patient was sedated and intubated by anesthesia in standard fashion. The patient was positioned on to the operating room table in a prone position on the appropriate well-padded and well molded bilateral chest rolls. We were careful to pad any bony prominences and pressure points. We were careful to maintain the patient's cervical spine and good neutral alignment and position throughout. We used 2 C-arm machines to establish biplanar fluoroscopic guidance in AP and lateral positions. We were able to localize the fractures appropriately at T12. The patient was prepped and draped in a normal standard fashion. An appropriate timeout and keystone protocol performed. We were able to proceed with the surgery. The local wound area was infiltrated with local anesthetic. An incision was made over the lateral aspect of the pedicle over the appropriate levels with a small 2 mm stab incision. Intraoperative fluoroscopy was taken which showed a marker at the appropriate level. With the appropriate level positively confirmed, I was able to position a sharp trocar over the lateral a spect of the pedicle. As able to advance the trocar into the pedicle and into the posterior aspect of vertebral body being careful to avoid penetration cephalad caudad or medially. The trocar was placed appropriately into the posterior aspect of vertebral body at the appropriate levels of T12 on the right. This was confirmed with C-arm guidance. With the trocar intact I was then able to take a bone biopsy with a biopsy punch or a bony drill. The biopsy specimen was passed off to be sent to pathology in formalin. I was then able to place the kyphoplasty balloon within the vertebral body. The position was checked on C-arm. I was able to inflate the balloon under low pressure and visualization with C-arm. The balloon was well enclosed within the vertebral body but seems to have some inferior endplate breech as well. The cement was prepared. With the cement at appropriate working condition the balloons were deflated and removed. I was able to place bony cement with trocar with the cement delivery device under low pressure. It had good fill within the vertebral body. The cement appeared to fill the inferior endplate breech and stabilize. There was excellent fill within the vertebral body. There is no evidence of any extravasation of the cement posteriorly toward the canal. The cement was well contained at the appropriate levels. The cement was allowed to cure appropriately. The trochars removed and final images were taken on C-arm. This showed the cement at the appropriate levels of T12. We were able to proceed with closure. The wound was cleaned and dried and dressed with the appropriate dressing. The drapes were broken down. The patient was gently rolled back onto their hospital bed being careful to maintain their cervical spine and good neutral alignment and position. They were woken up by anesthesia, extubated, and brought to the recovery room in good stable condition. The patient will be admitted to the hospital for observation and for appropriate postoperative care, medical management and monitoring. We will continue to follow them closely about the postoperative course.
--- NOTE | 2023-04-10 09:19 | FL ---
Intraoperative/procedural fluoroscopic services were provided. Total fluoroscopy time is 24 seconds w ith a total of 2 submitted images to PACS. Please see the operative/procedural note for further detai ls. DAP: 13.71 mGym2
[2023-04-10 10:18] VITALS: RESP 17
[2023-04-10 11:04] VITALS: BP 145/81; PULSE 82
== END | disposition home or self-care (01) ==
LOC: OR 06:08
PROVIDERS: ATTEND Orthopaedic Surgery Orthopaedic Surgery of the Spine
DX: S22.089A Unspecified fracture of T11-T12 vertebra, initial encounter for closed fracture (principal); I10 Essential (primary) hypertension; K21.9 Gastro-esophageal reflux disease without esophagitis; E78.00 Pure hypercholesterolemia, unspecified; F32.A Depression, unspecified; J44.9 Chronic obstructive pulmonary disease, unspecified; G47.33 Obstructive sleep apnea (adult) (pediatric); Z88.8 Allergy status to other drugs, medicaments and biological substances; Z79.899 Other long term (current) drug therapy; X58.XXXA Exposure to other specified factors, initial encounter
CPT/HCPCS: 22513; 88307; 88311; 72070; C1713; J2250; J0330; J0690; J2405; J3010; J2370; J2704; J1170; Q9966; J2001

== ENCOUNTER → 2023-05-16 | Outpatient (CLI) | payer MEDICARE ==
[2023-05-16 16:53] LABS: Appearance,BF Hazy
[2023-05-16 17:04] LABS: Nucleated Cells, Body Fluid 225 /uL; RBC, Body Fluid 3950 /uL
[2023-05-16 17:06] LABS: Mononuclear WBC,Body Fluid 95 %; Polynuclear WBC,Body Fluid 5 %; Total Cells Counted,Body Fluid 100
== END | disposition home or self-care (01) ==
LOC: LABWHC1 14:35
PROVIDERS: ATTEND Orthopaedic Surgery
DX: M25.561 Pain in right knee (principal); T84.84XD Pain due to internal orthopedic prosthetic devices, implants and grafts, subsequent encounter; Z96.651 Presence of right artificial knee joint; Y82.9 Unspecified medical devices associated with adverse incidents
CPT/HCPCS: 87070; 87075; 87205; 89050

== ENCOUNTER → 2024-10-22 | Outpatient (CLI) | payer MEDICARE ==
[2024-10-23 02:40] LABS: Basophils # (A) 0.05 X 10*3/uL (0.00-0.10); Basophils % (A) 0.9 %; Eosinophils # (A) 0.07 X 10*3/uL (0.04-0.35); Eosinophils % (A) 1.3 %; HCT 31.1 % (39.6-50.0); HGB 10.5 g/dL (13.0-17.0); Lymphocytes # (A) 0.93 X 10*3/uL (0.90-5.00); Lymphocytes % (A) 17.6 %; MCH 32.3 pg (27.0-32.0); MCHC 33.8 g/dL (32.0-37.0); MCV 95.7 FL (80.0-97.0); Monocytes # (A) 1.05 X 10*3/uL (0.20-1.00); Monocytes % (A) 19.9 %; NRBC Per 100 WBC 0.02 X 10*3/uL (0.00-0.01); Neutrophils # (A) 3.15 X 10*3/uL (1.80-7.70); Neutrophils % (A) 59.7 %; Platelet Count 138 X 10*3/uL (140-440); RBC 3.25 X 10*6/uL (4.40-5.60); RDW 21.2 % (11.5-14.5); WBC 5.28 X 10*3/uL (4.50-10.00)
[2024-10-23 03:40] LABS: ALT 18 U/L (10-49); AST 28 U/L (14-35); Albumin 4.6 g/dL (3.8-4.9); Alkaline Phosphatase 68 U/L (41-126); BUN/Creat Ratio 26.73 Ratio (12.00-20.00); Blood Urea Nitrogen 29.4 mg/dL (9.0-27.0); Calcium 9.4 mg/dL (8.7-10.3); Carbon Dioxide 20.6 mmol/L (21.6-31.8); Chloride 100 mmol/L (96-109); Glucose 103 mg/dL (70-110); Potassium 4.6 mmol/L (3.5-5.5); Sodium 135 mmol/L (135-145); T4, Free (Free Thyroxine) 1.14 ng/dL (0.80-1.80); Total Bilirubin 0.7 mg/dL (0.3-1.2); Total Protein 6.6 g/dL (6.2-8.2)
== END | disposition home or self-care (01) ==
LOC: LABWHC1 15:55
PROVIDERS: ATTEND Internal Medicine
DX: R53.83 Other fatigue (principal); R53.1 Weakness; R53.81 Other malaise
CPT/HCPCS: 36415; 80053; 82306; 82607; 84439; 84443; 85025

== ENCOUNTER → 2024-11-20 | Outpatient (CLI) | payer MEDICARE ==
[2024-11-20 19:05] LABS: % Iron Saturation 48.92 (15.00-50.00)
[2024-11-20 19:51] LABS: Anisocytosis (M) 2+ (None Seen); Basophils # (A) 0.03 X 10*3/uL (0.00-0.10); Basophils % (A) 0.6 %; Elliptocytes 2+ (None Seen); Eosinophils # (A) 0.04 X 10*3/uL (0.04-0.35); Eosinophils % (A) 0.8 %; HCT 30.8 % (39.6-50.0); HGB 9.9 g/dL (13.0-17.0); Lymphocytes # (A) 0.58 X 10*3/uL (0.90-5.00); Lymphocytes % (A) 10.9 %; MCH 32.7 pg (27.0-32.0); MCHC 32.1 g/dL (32.0-37.0); MCV 101.7 FL (80.0-97.0); Monocytes % (A) 20.8 %; NRBC Per 100 WBC 0 X 10*3/uL (0.00-0.01); Neutrophils # (A) 3.53 X 10*3/uL (1.80-7.70); Neutrophils % (A) 66.5 %; Platelet Count 126 X 10*3/uL (140-440); RBC 3.03 X 10*6/uL (4.40-5.60); RDW 22.6 % (11.5-14.5); Stomatocytes 2+ (None Seen)
== END | disposition home or self-care (01) ==
LOC: LABWHC1 15:19
PROVIDERS: ATTEND Internal Medicine
DX: D50.9 Iron deficiency anemia, unspecified (principal)
CPT/HCPCS: 36415; 82728; 83540; 83550; 85025